=== PATIENT | female | born 1970 | race American Indian/Alaskan Native ===

== ENCOUNTER 2022-04-28 23:17 | Emergency (ER) | payer SELFPAY ==
[2022-04-28] MEDS ORDERED: ETOMIDATE 20 MG/10 ML INJ IV ONE (23:57)
[2022-04-29] MEDS ORDERED: SUCCINYLCHOLINE CHLORIDE 200 MG/10 ML INJ MDV IV ONE
[2022-04-29] MEDS ORDERED: ETOMIDATE 20 MG/10 ML INJ IV ONE
[2022-04-29] MEDS ORDERED: SUCCINYLCHOLINE CHLORIDE 200 MG/10 ML INJ MDV ONE (00:01)
[2022-04-29] MEDS ORDERED: SODIUM CHLORIDE 0.9% 1000 ML 1,000 ML IV ONE ×3 (00:06→05:45)
[2022-04-29] MEDS ORDERED: MIDAZOLAM 2 MG/2 ML INJ IV PRN (00:17)
[2022-04-29 00:31] LABS: Hematocrit 29.9 % (30.3-42.9); Hemoglobin 9.1 gm/dl (10.1-14.3); Mean Corpuscular HGB Conc 30 % (30-34); Mean Corpuscular Volume 73 fl (79-97); Platelet Count 264 K/mm3 (140-440); Red Blood Count 4.12 M/mm3 (3.65-5.03)
[2022-04-29 00:36] LABS: Red Cell Distribution Width 21.4 % (13.2-15.2)
[2022-04-29 00:53] LABS: Alanine Aminotransferase 274 units/L (7-56); BUN/Creatinine Ratio 8; Blood Urea Nitrogen 7 mg/dL (7-17); Calcium 7.7 mg/dL (8.4-10.2); Hemolysis Index 10
[2022-04-29] MEDS ORDERED: LIDOCAINE DRIP 2,000 MG/500 ML BAG IV ONE (00:53)
[2022-04-29] MEDS ORDERED: LIDOCAINE PF 100 MG/5 ML (CARDIAC SYRINGE) IV ONE (00:53)
--- NOTE | 2022-04-29 00:55 | XRay Report ---
CHEST 1 VIEW INDICATION / CLINICAL INFORMATION: Altered Mental Status. COMPARISON: None available. FINDINGS: SUPPORT DEVICES: Endotracheal tube terminates 2 cm above the nissa. Esophagogastric tube terminates proximal to mid fundus. HEART / MEDIASTINUM: Borderline to mild cardiomegaly. LUNGS / PLEURA: Minimal bilateral perihilar stranding opacities are demonstrated. No focal airspace c onsolidation. BONES: No significant osseous abnormality. ADDITIONAL FINDINGS: No significant additional findings. IMPRESSION: 1. Satisfactory positioning of tubes and lines. 2. Nonspecific minimal perihilar interstitial stranding. Minimal pulmonary edema not excluded. Signer Name: Maurice Romero II, MD Signed: 04/29/2022 12:51 AM Workstation Name: [id number]
[2022-04-29] MEDS ORDERED: MIDAZOLAM/NS Drip 100mg/100ml 100 MG/100 ML BAG IV SCH (01:00)
[2022-04-29 01:03] LABS: INR 0.94 (0.87-1.13)
[2022-04-29 01:19] LABS: Band Neutrophils # (Manual) 0.2 K/mm3; Basophils % (Manual) 0 % (0.0-1.8); Eosinophils % (Manual) 0 % (0.0-4.3); Total Cells Counted 100
[2022-04-29 01:20] LABS: Anisocytosis 1+; Hypochromasia 2+; Ovalocytes Few; Platelet Estimate Consistent w Auto; Target Cells Few; Tear Drop Cells Few
[2022-04-29 01:39] LABS: ABG Base Excess -12.4 mmol/L (-2.0-3.0); ABG HCO3 13.3 mmol/L (20.0-26.0); ABG Methemoglobin 0.7 % (0.0-1.5); ABG Oxygen Saturation 99.6 % (95.0-99.0); ABG PCO2 29.6 mm Hg; ABG PH 7.27 pH Units (7.350-7.450); ABG PO2 422.7 mm Hg (80.0-90.0)
[2022-04-29 03:41] LABS: HCG Qualitative,Urine Negative (Negative)
[2022-04-29 03:49] LABS: Bacteria,Urine 1+ /HPF (Negative); Mucus,Urine FEW /HPF
[2022-04-29 03:52] LABS: Amphetamine Screen,Urine PRESUMPTIVE NEGATIVE; Benzodiazepines Screen,Urine PRESUMPTIVE POSITIVE; Cannabinoid Screen,Urine PRESUMPTIVE POSITIVE; Cocaine Screen,Urine PRESUMPTIVE NEGATIVE; Methadone Screen,Urine PRESUMPTIVE NEGATIVE; Opiate Screen,Urine PRESUMPTIVE NEGATIVE
[2022-04-29 03:59] LABS: Color,Urine Yellow (Yellow)
[2022-04-29] MEDS ORDERED: NORepinephrine/NS 8 MG-250 ML 8 MG/250 ML INFUS..BTL IV SCH (04:00)
--- NOTE | 2022-04-29 05:12 | Cat Scan Report ---
CT HEAD WITHOUT CONTRAST INDICATION / CLINICAL INFORMATION: Altered Mental Status. TECHNIQUE: CT head was performed without administration of intravenous contrast. All CT scans at this location are performed using CT dose reduction for ALARA by means of automated exposure control. COMPARISON: None available. FINDINGS: CEREBRAL HEMISPHERES: A large intra-axial hemorrhage is demonstrated within the anterior/inferior rig ht frontal lobe. This measures 2.1 cm transverse dimension, 4.7 cm AP dimension, and 2.9 cm in cranio caudal dimension. This arises from a position adjacent aneurysm clips along the skull base. Additiona l subarachnoid hemorrhage is predominantly overlying the right cerebral sulci and within the right sy lvian fissure. Additional intraventricular extension of hemorrhage is present filling the right later al ventricle, third ventricle, extending into the fourth ventricle. Mild enlargement of the left and right temporal horn is demonstrated. Midline shift measures up to 10-11 mm to the left. CEREBELLUM / BRAINSTEM: Acute hemorrhage extends through the fourth ventricle. Low-lying cerebellar t onsils are present. ORBITS: Mild bilateral exophthalmos. No acute findings within the orbits. SOFT TISSUES: No significant abnormality. SKULL: Previous left frontal craniotomy defect. PARANASAL SINUSES / MASTOID AIR CELLS: Normal as visualized. ADDITIONAL FINDINGS: None. IMPRESSION: 1. 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 CTA of the head recommended for further evaluation. 2. Intraventricular extension of hemorrhage primarily through the right lateral ventricle, third vent ricle, and within the fourth ventricle. Early hydrocephalus with temporal enlargement of the left lat eral ventricle is suggested. 3. Midline shift without obvious subfalcine herniation. CRITICAL RESULT Time of Discovery (GOLF COURSE STARTER/CDT): 0400 hours Time of Communication (GOLF COURSE STARTER/CDT): 0404 hours Licensed Practitioner Receiving Report: Dr. Quinn Read-Back Performed: Yes. Signer Name: Maurice Romero II, MD Signed: 04/29/2022 5:08 AM Workstation Name: [id number]
[2022-04-29] MEDS ORDERED: MANNITOL IV ONE (05:24)
[2022-04-29] MEDS ORDERED: levETIRAcetam 1000 MG/NS 0.75% 1,000 MG/100 ML BAG IV ONE (05:24)
--- NOTE | 2022-04-29 05:36 | Emergency Department Report ---
ED Seizure HPI - General Chief Complaint: Seizure Stated Complaint: SEIZURES Time Seen by Provider: 04/29/22 00:06 Source: EMS Mode of arrival: Stretcher Limitations: No Limitations - History of Present Illness Initial Comments: Family called stating that pt had a seizure. Was given Versed 2.5mg IV for seizure activity by EMS. Decreased responsiveness at this time. Complaint: possible seizure -: Sudden, hour(s) Description of Episode: loss of consciousness, tonic-clonic movement, bladder incontinence, bowel incontinence Witnessed:: Yes Trauma: No Seizure History: none Place: home Treatments Prior to Arrival: benzodiazepines - Related Data Allergies Allergy/AdvReac Type Severity Reaction Status Date / Time Unable to Assess Allergy Verified 04/29/22 00:27 ED Review of Systems ROS: Stated complaint: SEIZURES Other details as noted in HPI Comment: Unobtainable due to pts medical conditions ED Past Medical Hx - Past Medical History Previous Medical History?: Yes Hx Seizures: Yes - Surgical History Past Surgical History?: No - Social History Smoking Status: Unknown if ever smoked ED Physical Exam - General Limitations: Altered Mental Status General appearance: obtunded, postictal - Head Head exam: Present: atraumatic, normocephalic, other (scar of previous cranitomy ) - Eye Eye exam: Present: other (sluggish ) - ENT ENT exam: Present: mucous membranes moist - Neck Neck exam: Present: normal inspection - Respiratory Respiratory exam: Present: normal lung sounds bilaterally. Absent: respiratory distress - Cardiovascular Cardiovascular Exam: Present: normal rhythm, bradycardia. Absent: systolic murmur, diastolic murmur, rubs, gallop - GI/Abdominal GI/Abdominal exam: Present: soft, normal bowel sounds - Extremities Exam Extremities exam: Present: normal inspection - Back Exam Back exam: Present: normal inspection - Expanded Neurological Exam Expanded Best Eye Response ([place]): (1) no response Best Motor Response ([place]): (1) no motor response Best Verbal Response ([place]): (1) no verbal response [place] Total: 3 - Skin Skin exam: Present: warm, dry, intact, normal color. Absent: rash ED Course Vital Signs 04/28/22 04/28/22 04/29/22 23:18 23:55 00:37 Temperature 97.9 F Pulse Rate 80 51 L Respiratory 18 Rate Blood Pressure 160/90 139/80 O2 Sat by Pulse 97 100 100 Oximetry 04/29/22 04/29/22 04/29/22 02:01 02:15 02:31 Temperature Pulse Rate 86 110 H 98 H Respiratory Rate Blood Pressure 78/45 76/45 75/44 O2 Sat by Pulse Oximetry 04/29/22 04/29/22 04/29/22 02:45 03:01 03:15 Temperature Pulse Rate 83 74 69 Respiratory Rate Blood Pressure 80/44 68/36 75/43 O2 Sat by Pulse 94 96 96 Oximetry 04/29/22 04/29/22 04/29/22 03:31 03:45 04:01 Temperature Pulse Rate 62 59 L 59 L Respiratory Rate Blood Pressure 73/42 75/45 88/57 O2 Sat by Pulse 98 96 96 Oximetry 04/29/22 04/29/22 04/29/22 04:15 04:53 05:01 Temperature Pulse Rate 59 L 57 L 58 L Respiratory 22 Rate Blood Pressure 97/63 97/63 97/63 O2 Sat by Pulse 94 98 Oximetry - Intubation Sedative: Etomidate Mg Given: 20 Paralytic: Succinylcholine Mg Given: 50 Laryngoscope: fiberoptic video scope Size: 3 ET Tube Size: 7.5 Tube Secured Depth (cm): 22 Tube Secured Location: lips Tube Placement Confirmation: visualized tube passing t, equal breath sounds bilat, no breath sounds over epi, confirmation by capnometr Patient Tolerated Procedure: well, no complications Intubation Complications: none ED Medical Decision Making - Lab Data Result diagrams: 04/29/22 00:18 04/29/22 00:18 - EKG Data -: EKG Interpreted by [facility] EKG shows normal: sinus rhythm Rate: bradycardia - Radiology Data Radiology results: report reviewed, image reviewed - Medical Decision Making pt was intuabted initially as below V tach noted lidocaine given 100 mg IB push stablised keppra added LOW BP noted lab unremarkable , CT head showed ICH , spoke with lavivi Carvajal accepted patient mannito addded levophed stopped, Critical Care Time: Yes Critical care time in (mins) excluding proc time.: 120 Critical care attestation.: If time is entered above; I have spent that time in minutes in the direct care of this critically ill patient, excluding procedure time. ED Disposition Clinical Impression: New onset seizure, Intracranial bleed, Subarachnoid hemorrhage Disposition: 51 HOSPICE/MEDICAL FACILITY Is pt being admited?: No Does the pt Need Aspirin: No Condition: Critical Referrals: ELIJAH BERGER MD [Primary Care Provider] - 3-5 Days
[2022-04-29 07:15] VITALS: BP 96/65
[2022-05-02] MEDS ORDERED: SUCCINYLCHOLINE CHLORIDE 200 MG/10 ML INJ MDV IV ONE
--- NOTE | 2022-05-02 09:43 | Electrocardiograph Report ---
[facility] Test Date: 2022-04-29 Test Time: 00:15:10 Pat Name: JESSE LOW Department: Room: Gender: F Synthetic Department Supervisor: JOLIE : 1970 Requested By: ROD DASILVA Order Number: [id number] Reading MD: Akbar Valdez Measurements Intervals [place] Rate: 46 P: 71 [place]: 147 QRS: 55 QRSD: 82 T: 54 QT: 471 QTc: 411 Interpretive Statements Sinus bradycardia No previous ECG available for comparison Electronically Signed On 05-02-2022 9:42:53 EDT by Akbar Valdez
== END 2022-04-29 07:14 | disposition hospice, inpatient (51) ==
LOC: ED 23:17
DX: I60.9 Nontraumatic subarachnoid hemorrhage, unspecified (principal); R56.9 Unspecified convulsions; Z79.899 Other long term (current) drug therapy
CPT/HCPCS: 31500; 36415; 70450; 71045; 80053; 80307; 81001; 81025; 82140; 82550; 82803; 83880; 84484; 85007; 85025; 85610; 86140; 87205; 93005; 96361; 96365; 96366; 96367; 96375; 99291; 99292; J0330; J1953; J2001; J2150; J2250; J2354; J3490; J7030; 80320; 94002; G0480